=== PATIENT | male | born 1995 | race Caucasian/White ===

== ENCOUNTER 2016-12-21 21:57 | Emergency (ER) | payer BC, OTHER ==
[~2016-12-21] VITALS: Ht 172.7 cm; Wt 56.7 kg
[~2016-12-21 21:57] MED LIST: ADDERALL30 MG PO; AMPHETAMINE SAL20 MG PO; ATARAX25 MG PO; CITALOPRAM HYDR20 MG PO; CLARITIN10 MG PO; CLINDAMYCIN HC300 MG PO; ELIMITE 5%60 GM PO; KEFLEX500 MG PO; MOTRIN400 MG PO; MOTRIN800 MG PO; PREDNICOT20 MG PO; VALIUM5 MG PO; ZITHROMAX Z PA250 MG PO; ZOFRAN4 MG PO
[2016-12-21] MEDS ORDERED: ADDERALL 20 MG20 MG PO (22:06)
[2016-12-21] MEDS ORDERED: KLONOPIN2 M1 PO (22:07)
[2016-12-21 22:40] LABS: BILIRUBIN NEGATIVE (NEGATIVE); BLOOD NEGATIVE (NEGATIVE); CLARITY SL CLOUDY (CLEAR); COLOR YELLOW (YELLOW); GLUCOSE NEGATIVE (NEGATIVE); KETONE NEGATIVE (NEGATIVE); LEUKO ESTERASE 1+ (NEGATIVE); NITRITE NEGATIVE (NEGATIVE); PROTEIN NEGATIVE (NEGATIVE); UROBILINOGEN 0.2 E.U./dl (0.2-1.0)
[2016-12-21 22:46] LABS: BACTERIA 2+; EPITHELIAL CELLS 0-2; RBC 0-2 rbc/hpf (0-2); URINE REFLEX COMMENT YES (NO); WBC 16-20 wbc/hpf (0-5)
[2016-12-21 22:49] LABS: URINE AMPHETAMINES > 1000 (1000ng/ml); URINE BARBITURATES < 200 (200ng/ml); URINE COCAINE < 300 (300ng/ml)
[2016-12-21 22:54] LABS: BASO # 0.1 10*3/uL (0.0-0.1); BASO % 0.7 % (0.0-1.0); EOS # 0.1 10*3/uL (0.0-0.4); EOS % 1.3 % (1.0-4.0); HEMATOCRIT 44.5 % (42.0-52.0); HEMOGLOBIN 15.5 g/dl (14.0-18.0); LYMPH # 4.3 10*3/uL (1.3-4.4); LYMPH % 40.1 % (27.0-41.0); MEAN CELL VOLUME 88.3 fl (80.0-94.0); MEAN CORPUSCULAR HGB 30.8 pg (27.0-31.0); MEAN CORPUSCULAR HGB CONC 34.8 g/dl (33.0-37.0); MEAN PLATELET VOLUME 10.1 fl (9.6-12.3); MONO % 9.3 % (3.0-9.0); NEUT # 5.2 10*3/uL (2.3-7.9); NEUT % 48.4 % (47.0-73.0); PLATELET COUNT AUTOMATED 259 10*3/uL (130-400); RED BLOOD COUNT 5.04 10*6/uL (4.50-5.90); RED CELL DISTRI WIDTH 12.9 % (0-14.5); WHITE BLOOD COUNT 10.8 10*3/uL (4.8-10.8)
[2016-12-21 23:12] LABS: ALBUMIN 4.1 gm/dl (3.1-4.5); ALKALINE PHOSPHATASE 84 U/L (45-117); BILIRUBIN, TOTAL 0.4 mg/dl (0.2-1.0); BUN 14 mg/dl (7-24); CARBON DIOXIDE 30 mmol/L (21-32); CHLORIDE 103 mmol/L (98-107); EST GLOM FILT AFRICAN AMERICAN > 60 ml/min; GLUCOSE 83 mg/dL (65-99); POTASSIUM 4.7 mmol/L (3.5-5.1); SGOT/AST 17 IU/L (3-35); SGPT/ALT 14 U/L (12-78); SODIUM 144 mmol/L (136-145); TOTAL PROTEIN 7.4 gm/dL (6.4-8.2)
[2016-12-21 23:18] LABS: TROPONIN I < 0.015 ng/ml (<0.045)
== END 2016-12-22 00:39 | disposition home or self-care (01) ==
LOC: ED 21:57
PROVIDERS: Emergency Medicine
DX: F41.9 Anxiety disorder, unspecified (principal); R44.0 Auditory hallucinations; R44.1 Visual hallucinations; R45.1 Restlessness and agitation; F17.200 Nicotine dependence, unspecified, uncomplicated; Z88.0 Allergy status to penicillin; Z79.899 Other long term (current) drug therapy

== ENCOUNTER 2017-09-02 17:15 | Emergency (ER) | payer BC, OTHER ==
[~2017-09-02] VITALS: Ht 175.2 cm; Wt 58.1 kg
[~2017-09-02 17:15] MED LIST changes: +ADDERALL 20 MG20 MG PO; +KLONOPIN2 M1 PO
[2017-09-02 19:15] LABS: BASO % 0.4 % (0.0-1.0); EOS # 0.1 10*3/uL (0.0-0.4); EOS % 0.6 % (1.0-4.0); HEMATOCRIT 49.6 % (42.0-52.0); HEMOGLOBIN 17.3 g/dl (14.0-18.0); LYMPH # 2.8 10*3/uL (1.3-4.4); LYMPH % 30.1 % (27.0-41.0); MEAN CELL VOLUME 87.6 fl (80.0-94.0); MEAN CORPUSCULAR HGB 30.6 pg (27.0-31.0); MEAN CORPUSCULAR HGB CONC 34.9 g/dl (33.0-37.0); MEAN PLATELET VOLUME 10.1 fl (9.6-12.3); MONO # 1.1 10*3/uL (0.1-1.0); NEUT # 5.4 10*3/uL (2.3-7.9); NEUT % 56.7 % (47.0-73.0); PLATELET COUNT AUTOMATED 277 10*3/uL (130-400); RED BLOOD COUNT 5.66 10*6/uL (4.50-5.90); RED CELL DISTRI WIDTH 12.9 % (0-14.5); WHITE BLOOD COUNT 9.5 10*3/uL (4.8-10.8)
[2017-09-02 19:30] LABS: ALBUMIN 4.7 gm/dl (3.1-4.5); ALKALINE PHOSPHATASE 104 U/L (45-117); BUN 13 mg/dl (7-24); CHLORIDE 101 mmol/L (98-107); CREATININE 1.07 mg/dL (0.70-1.30); POTASSIUM 3.6 mmol/L (3.5-5.1); SGOT/AST 17 IU/L (3-35); SGPT/ALT 25 U/L (12-78); SODIUM 138 mmol/L (136-145); TOTAL PROTEIN 8.3 gm/dL (6.4-8.2)
[2017-09-02] MEDS ORDERED: ATIVAN1 MG PO (20:37)
[2017-09-02 20:47] LABS: BILIRUBIN NEGATIVE (NEGATIVE); BLOOD TRACE-INTACT (NEGATIVE); CLARITY CLEAR (CLEAR); COLOR YELLOW (YELLOW); GLUCOSE NEGATIVE (NEGATIVE); KETONE NEGATIVE (NEGATIVE); LEUKO ESTERASE NEGATIVE (NEGATIVE); NITRITE NEGATIVE (NEGATIVE)
[2017-09-02 20:53] LABS: EPITHELIAL CELLS 0-2; MUCOUS TRACE; URINE AMPHETAMINES < 1000 (1000ng/ml); URINE BARBITURATES < 200 (200ng/ml); URINE BENZODIAZEPINES < 200 (200ng/ml); URINE CANNABINOIDS (THC) > 50 (50ng/ml); URINE COCAINE < 300 (300ng/ml); URINE METHADONE < 300 (300ng/ml); URINE OPIATES < 300 (300ng/ml); WBC 21-30 wbc/hpf (0-5)
[2017-09-02 20:54] LABS: CALCIUM OXALATE CRYSTALS TRACE
[2017-09-02 20:57] LABS: URINE PHENCYCLIDINE < 25 (25ng/ml)
== END 2017-09-02 20:49 | disposition home or self-care (01) ==
LOC: ED 17:15
PROVIDERS: Emergency Medicine; Emergency Medicine Emergency Medical Services
DX: F41.9 Anxiety disorder, unspecified (principal); F32.9 Major depressive disorder, single episode, unspecified; F17.200 Nicotine dependence, unspecified, uncomplicated; Z79.899 Other long term (current) drug therapy; Z88.0 Allergy status to penicillin

== ENCOUNTER 2017-12-17 21:25 | Emergency (ER) | payer BC, OTHER ==
[~2017-12-17] VITALS: Ht 175.2 cm; Wt 59.0 kg
[~2017-12-17 21:25] MED LIST changes: +ATIVAN1 MG PO
[2017-12-17] MEDS ORDERED: METOPROLOL SUCC50 M1 PO (21:43)
[2017-12-20] MEDS ORDERED: ZITHROMAX1 GM PO (10:18)
== END 2017-12-17 21:57 | disposition home or self-care (01) ==
LOC: ED 21:25
DX: A63.8 Other specified predominantly sexually transmitted diseases (principal); Z79.899 Other long term (current) drug therapy; Z88.0 Allergy status to penicillin

== ENCOUNTER 2018-05-22 20:14 | Emergency (ER) | payer BC, OTHER ==
[~2018-05-22] VITALS: Ht 175.2 cm; Wt 58.1 kg
[~2018-05-22 20:14] MED LIST changes: +METOPROLOL SUCC50 M1 PO; +ZITHROMAX1 GM PO
== END 2018-05-22 21:10 | disposition home or self-care (01) ==
LOC: ED 20:14
DX: R21 Rash and other nonspecific skin eruption (principal); F17.200 Nicotine dependence, unspecified, uncomplicated; Z88.0 Allergy status to penicillin; Z79.899 Other long term (current) drug therapy

== ENCOUNTER 2018-10-31 08:47 | Emergency (ER) | payer BC ==
[~2018-10-31] VITALS: Ht 172.7 cm; Wt 59.0 kg
[2018-10-31 09:27] LABS: BILIRUBIN NEGATIVE (NEGATIVE); BLOOD NEGATIVE (NEGATIVE); CLARITY CLEAR (CLEAR); COLOR YELLOW (YELLOW); GLUCOSE NEGATIVE (NEGATIVE); KETONE NEGATIVE (NEGATIVE); LEUKO ESTERASE NEGATIVE (NEGATIVE); NITRITE NEGATIVE (NEGATIVE); UROBILINOGEN 0.2 E.U./dl (0.2-1.0)
[2018-10-31 09:35] LABS: BASO % 0.6 % (0.0-1.0); EOS # 0.1 10*3/uL (0.0-0.4); EOS % 1.2 % (1.0-4.0); HEMATOCRIT 47.1 % (42.0-52.0); HEMOGLOBIN 16.4 g/dl (14.0-18.0); LYMPH # 2.6 10*3/uL (1.3-4.4); LYMPH % 37.9 % (27.0-41.0); MEAN CELL VOLUME 89.2 fl (80.0-94.0); MEAN CORPUSCULAR HGB 31.1 pg (27.0-31.0); MEAN CORPUSCULAR HGB CONC 34.8 g/dl (33.0-37.0); MEAN PLATELET VOLUME 10.3 fl (9.6-12.3); MONO # 0.7 10*3/uL (0.1-1.0); MONO % 9.4 % (3.0-9.0); NEUT # 3.5 10*3/uL (2.3-7.9); NEUT % 50.6 % (47.0-73.0); PLATELET COUNT AUTOMATED 284 10*3/uL (130-400); RED BLOOD COUNT 5.28 10*6/uL (4.50-5.90); RED CELL DISTRI WIDTH 12.9 % (0-14.5); WHITE BLOOD COUNT 6.9 10*3/uL (4.8-10.8)
[2018-10-31 09:59] LABS: BACTERIA 1+; MUCOUS 1+; RBC 0-2 rbc/hpf (0-2)
[2018-10-31 10:04] LABS: ALBUMIN 4.4 gm/dl (3.1-4.5); ALKALINE PHOSPHATASE 110 U/L (45-117); BUN 12 mg/dl (7-24); CHLORIDE 104 mmol/L (98-107); LIPASE 100 U/L (73-393); POTASSIUM 3.9 mmol/L (3.5-5.1); SGOT/AST 14 IU/L (3-35); SGPT/ALT 18 U/L (12-78); SODIUM 140 mmol/L (136-145); TOTAL PROTEIN 7.8 gm/dL (6.4-8.2)
[2018-11-04 02:08] LABS: GONOCOCCUS BY NAA Negative (Negative)
== END 2018-10-31 12:13 | disposition home or self-care (01) ==
LOC: ED 08:47
PROVIDERS: Emergency Medicine; Student in an Organized Health Care Education/Training Program
DX: Z20.2 Contact with and (suspected) exposure to infections with a predominantly sexual mode of transmission (principal); R19.8 Other specified symptoms and signs involving the digestive system and abdomen; Z88.0 Allergy status to penicillin

== ENCOUNTER 2020-06-22 20:14 | Emergency (ER) | payer OTHER ==
[~2020-06-22] VITALS: Ht 172.7 cm; Wt 56.7 kg
[2020-06-22] MEDS ORDERED: OMNICEF300 MG PO (21:22)
== END 2020-06-22 22:04 | disposition home or self-care (01) ==
LOC: ED 20:14
DX: J32.9 Chronic sinusitis, unspecified (principal); F41.9 Anxiety disorder, unspecified; Z20.828 Contact with and (suspected) exposure to other viral communicable diseases; Z88.0 Allergy status to penicillin

== ENCOUNTER → 2020-08-24 | Outpatient (CLI) | payer OTHER ==
[~2020-08-24] MED LIST changes: +OMNICEF300 MG PO
== END | disposition home or self-care (01) ==
LOC: COVID19 12:02
PROVIDERS: ATTEND Family Medicine
DX: U07.1 COVID-19 (principal)

== ENCOUNTER → 2021-08-02 | Outpatient (CLI) | payer OTHER ==
[2021-08-02 09:42] LABS: MEAN CELL VOLUME 91.1 fl (80.0-94.0); MEAN CORPUSCULAR HGB 30.2 pg (27.0-31.0); MEAN CORPUSCULAR HGB CONC 33.2 g/dl (33.0-37.0); RED BLOOD COUNT 4.83 10*6/uL (4.50-5.90); WHITE BLOOD COUNT 6.6 10*3/uL (4.8-10.8)
[2021-08-02 10:14] LABS: ALBUMIN 4.2 gm/dl (3.1-4.5); ALKALINE PHOSPHATASE 127 U/L (45-117); BUN 11 mg/dl (7-24); CHLORIDE 106 mmol/L (98-107); CHOLESTEROL 179 mg/dL (<200); CREATININE 0.97 mg/dL (0.70-1.30); FREE T4 1.05 ng/dl (0.76-1.46); SGOT/AST 17 IU/L (3-35); SGPT/ALT 28 U/L (12-78); SODIUM 139 mmol/L (136-145); TOTAL PROTEIN 7.6 gm/dL (6.4-8.2); TRIGLYCERIDES 104 mg/dl (<150)
[2021-08-02 10:20] LABS: LDL CHOLESTEROL 96 mg/dL (9-159)
[2021-08-02 13:40] LABS: VITAMIN D, 25-HYDROXY 20.4 ng/mL (30-100)
== END | disposition home or self-care (01) ==
LOC: LAB 09:00
PROVIDERS: ATTEND Family Medicine
DX: Z00.00 Encounter for general adult medical examination without abnormal findings (principal); E74.00 Glycogen storage disease, unspecified; F41.1 Generalized anxiety disorder

== ENCOUNTER 2021-12-18 23:05 | Emergency (ER) | payer OTHER ==
[~2021-12-18] VITALS: Ht 175.2 cm; Wt 53.1 kg
[2021-12-18 23:35] LABS: BASO # 0.1 10*3/uL (0.0-0.1); BASO % 0.7 % (0.0-1.0); EOS # 0.1 10*3/uL (0.0-0.4); EOS % 0.8 % (1.0-4.0); HEMATOCRIT 43.4 % (42.0-52.0); LYMPH # 4.5 10*3/uL (1.3-4.4); LYMPH % 34.5 % (27.0-41.0); MEAN CELL VOLUME 87.9 fl (80.0-94.0); MEAN CORPUSCULAR HGB CONC 34.1 g/dl (33.0-37.0); MONO # 0.9 10*3/uL (0.1-1.0); MONO % 6.6 % (3.0-9.0); NEUT # 7.5 10*3/uL (2.3-7.9); NEUT % 57.2 % (47.0-73.0); PLATELET COUNT AUTOMATED 232 10*3/uL (130-400); RED BLOOD COUNT 4.94 10*6/uL (4.50-5.90); RED CELL DISTRI WIDTH 12.9 % (0-14.5); WHITE BLOOD COUNT 13.1 10*3/uL (4.8-10.8)
[2021-12-18 23:46] LABS: BILIRUBIN 1+ (Negative); BLOOD 2+ (Negative); CLARITY Turbid (Clear); COLOR Red (Yellow); GLUCOSE Negative (Negative); KETONE Negative (Negative); LEUKO ESTERASE 2+ (Negative); NITRITE Positive (Negative)
[2021-12-18 23:51] LABS: ALKALINE PHOSPHATASE 124 U/L (45-117); BUN 8 mg/dl (7-24); CHLORIDE 103 mmol/L (98-107); CREATININE 1.05 mg/dL (0.70-1.30); LIPASE 87 U/L (73-393); POTASSIUM 3.2 mmol/L (3.5-5.1); SGOT/AST 32 IU/L (3-35); SGPT/ALT 39 U/L (12-78); SODIUM 138 mmol/L (136-145); TOTAL PROTEIN 6.9 gm/dL (6.4-8.2)
[2021-12-18 23:54] LABS: CALCIUM OXALATE CRYSTALS 1+; RBC TNTC rbc/hpf (0-2); WBC 16-20 wbc/hpf (0-5)
[2021-12-19] MEDS ORDERED: ZOFRAN4 MG PO (02:09)
[2021-12-19] MEDS ORDERED: FLOMAX0.4 MG PO (02:09)
== END 2021-12-19 02:20 | disposition home or self-care (01) ==
LOC: ED 23:05
PROVIDERS: Internal Medicine
DX: N13.2 Hydronephrosis with renal and ureteral calculous obstruction (principal); N13.4 Hydroureter; Z88.0 Allergy status to penicillin

== ENCOUNTER 2023-03-02 16:00 | Emergency (ER) | payer MEDICAID ==
[~2023-03-02] VITALS: Ht 175.2 cm; Wt 49.9 kg
[~2023-03-02 16:00] MED LIST changes: +FLOMAX0.4 MG PO
[2023-03-02] MEDS ORDERED: VALTREX1000 MG PO (17:06)
== END 2023-03-02 17:20 | disposition home or self-care (01) ==
LOC: ED 16:00
DX: B00.1 Herpesviral vesicular dermatitis (principal); F17.200 Nicotine dependence, unspecified, uncomplicated; Z88.0 Allergy status to penicillin; Z79.2 Long term (current) use of antibiotics; Z79.899 Other long term (current) drug therapy

== ENCOUNTER 2023-05-21 04:49 | Emergency (ER) | payer MEDICAID ==
[~2023-05-21] VITALS: Ht 170.1 cm; Wt 70.3 kg
[~2023-05-21 04:49] MED LIST changes: +VALTREX1000 MG PO
[2023-05-21 05:59] LABS: BASO % 0.3 % (0.0-1.0); EOS % 0.2 % (1.0-4.0); HEMATOCRIT 43.8 % (42.0-52.0); LYMPH # 2.6 10*3/uL (1.3-4.4); LYMPH % 22.5 % (27.0-41.0); MEAN CELL VOLUME 88.3 fl (80.0-94.0); MEAN CORPUSCULAR HGB CONC 35.2 g/dl (33.0-37.0); MEAN PLATELET VOLUME 10.8 fl (9.6-12.3); MONO # 0.6 10*3/uL (0.1-1.0); MONO % 5.2 % (3.0-9.0); NEUT # 8.2 10*3/uL (2.3-7.9); NEUT % 70.7 % (47.0-73.0); PLATELET COUNT AUTOMATED 272 10*3/uL (130-400); RED BLOOD COUNT 4.96 10*6/uL (4.50-5.90); WHITE BLOOD COUNT 11.7 10*3/uL (4.8-10.8)
[2023-05-21 06:10] LABS: BILIRUBIN Negative (Negative); BLOOD Negative (Negative); CLARITY Clear (Clear); COLOR Yellow (Yellow); GLUCOSE Negative (Negative); KETONE Negative (Negative); LEUKO ESTERASE Negative (Negative); NITRITE Negative (Negative); SPECIFIC GRAVITY 1.025 (1.001-1.030)
[2023-05-21 06:23] LABS: URINE AMPHETAMINES Negative (1000ng/ml); URINE BARBITURATES Negative (200ng/ml); URINE BENZODIAZEPINES Negative (200ng/ml); URINE CANNABINOIDS (THC) Negative (50ng/ml); URINE COCAINE Negative (300ng/ml); URINE METHADONE Negative (300ng/ml); URINE OPIATES Negative (300ng/ml); URINE PHENCYCLIDINE Negative (25ng/ml)
[2023-05-21 06:26] LABS: ALKALINE PHOSPHATASE 116 U/L (46-116); BUN 7 mg/dl (9-23); CHLORIDE 104 mmol/L (98-107); ETHYL ALCOHOL 5.6 mg/dl (<3); POTASSIUM 3.6 mmol/L (3.4-5.1); SGPT/ALT 11 U/L (10-49); TOTAL PROTEIN 6.9 gm/dL (6.0-8.0)
[2023-05-21 06:34] LABS: MUCOUS 2+; RBC 0-2 rbc/hpf (0-2); WBC 0-2 wbc/hpf (0-5)
[2023-05-21] MEDS ORDERED: VISTARIL25 M2 PO (08:25)
== END 2023-05-21 08:28 | disposition home or self-care (01) ==
LOC: ED 04:49
PROVIDERS: Emergency Medicine
DX: F41.9 Anxiety disorder, unspecified (principal); F90.9 Attention-deficit hyperactivity disorder, unspecified type; Z88.0 Allergy status to penicillin; Z79.899 Other long term (current) drug therapy